=== PATIENT | female | born 1935 | race Two or more races ===

== ENCOUNTER 2022-05-22 16:59 | Inpatient (IN) | payer MEDICARE, OTHER ==
[~2022-05-22] VITALS: Ht 165.1 cm; Wt 68.5 kg
--- NOTE | 2022-05-22 17:25 | NUR ---
PAULINE FROM [facility] FOR AGITATION AND AGGRESSIVE BEHAVIOR. TO ER BED 11.
[2022-05-22] MEDS ORDERED: ACET325T53 PO (17:44)
[2022-05-22] MEDS ORDERED: FURO-145 PO (17:44)
[2022-05-22] MEDS ORDERED: DIVA500T2 PO (17:44)
[2022-05-22] MEDS ORDERED: POTA10CA43 PO (17:44)
[2022-05-22] MEDS ORDERED: BISA10SU11 RC (17:44)
[2022-05-22] MEDS ORDERED: QUET25TA PO (17:44)
[2022-05-22 17:59] LABS: BASOPHILS % (AUTO) 0.4 % (0.0-2.0); EOSINOPHILS % (AUTO) 1.7 % (0.0-6.0); HEMATOCRIT 38 % (33-45); HEMOGLOBIN 12.5 g/dL (11.5-14.8); LYMPHOCYTES # (AUTO) 1.5 K/uL (0.8-4.8); LYMPHOCYTES % (AUTO) 28.2 % (20.0-44.0); MEAN CORPUSCULAR HGB CONC 33 g/dl (31.0-36.0); MEAN CORPUSCULAR VOLUME 86 fL (82-100); MONOCYTES # (AUTO) 0.5 K/uL (0.1-1.30); MONOCYTES % (AUTO) 9.3 % (2.0-12.0); NEUTROPHILS # (AUTO) 3.2 K/uL (1.8-8.9); NEUTROPHILS % (AUTO) 60.4 % (43.0-81.0); PLATELET COUNT (AUTO) 309 K/uL (150-450); RED BLOOD CELL COUNT(AUTO) 4.44 MIL/uL (4.0-5.2); WHITE BLOOD COUNT (AUTO) 5.2 K/uL (4.3-11.0)
--- NOTE | 2022-05-22 18:00 | NUR ---
PHLEB ABLE TO DRAW BLOOD
--- NOTE | 2022-05-22 18:10 | NUR ---
PT UNABLE TO PROVIDE URINE AT THIS TIME; GESTURING "NO" WHEN INSTRUCTED TO GIVE URINE.
[2022-05-22 18:11] LABS: CALCIUM, SERUM 8.7 mg/dL (8.5-10.1); CARBON DIOXIDE 31 mmol/L (21-32); CHLORIDE 100 mmol/L (98-107); CREATININE 1.2 mg/dL (0.6-1.3); GLUCOSE 206 mg/dL (74-106); POTASSIUM 4.1 mmol/L (3.5-5.1); SODIUM SERUM 136 mmol/L (136-145); UREA NITROGEN, BLOOD 31 mg/dL (7-18)
[2022-05-22 18:17] LABS: ALANINE AMINOTRANSFERASE 11 U/L (12-78); ALBUMIN 3.1 g/dL (3.4-5.0); ALCOHOL, BLOOD < 3 mg/dL (0-0); ALKALINE PHOSPHATASE 65 U/L (46-116); ASPARTATE AMINOTRANSFERASE 14 U/L (15-37); BILIRUBIN,DIRECT 0.1 mg/dL (0.0-0.2); BILIRUBIN,TOTAL 0.2 mg/dL (0.2-1.0); TOTAL PROTEIN, SERUM 7.6 g/dL (6.4-8.2)
--- NOTE | 2022-05-22 18:36 | NUR ---
COVID SWAB COLLECTED AND SENT TO LAB
--- NOTE | 2022-05-22 19:37 | NUR ---
URINE COLLECTED AND SENT TO LAB
[2022-05-22 20:28] LABS: BILIRUBIN,URINE NEGATIVE (NEGATIVE); COLOR,URINE YELLOW (YELLOW); LEUKOCYTE ESTERASE ,URINE 1+ (NEGATIVE); NITRITE, URINE NEGATIVE (NEGATIVE); PROTEIN,URINE TRACE mg/dl (NEGATIVE); UGLUCOSE NEGATIVE (NEGATIVE); UROBILINOGEN,URINE 0.2 EU/dL (0.2)
--- NOTE | 2022-05-22 20:43 | NUR ---
CALLED [facility] CRISIS TEAM FOR EVAL
[2022-05-22 20:59] LABS: BACTERIA,URINE 1+ /HPF (None Seen); RBC,URINE 0-2 /HPF (0-2)
--- NOTE | 2022-05-22 21:03 | NUR ---
[facility] PAGED
--- NOTE | 2022-05-22 23:02 | NUR ---
ALISON MICHAEL[facility] CRISIS TEAM AT PT'S BEDSIDE FOR EVAL
--- NOTE | 2022-05-23 00:14 | NUR ---
REPORT GIVEN TO HOLLAND FERNANDEZNANDO
--- NOTE | 2022-05-23 00:39 | NUR ---
PATIENT TRANSFERRED VSS
[2022-05-23 00:45] VITALS: BP 131/68
--- NOTE | 2022-05-23 00:45 | NUR ---
GPS SOFT BOARDER NOTES RECEIVED FROM ER VIA ELISA THIS 86 YO FEMALE,A RESIDENT OF [facility], WAS SENT TO [place] FOR EVALUATION OF BEHAVIOR,AGITATION AND AGGRESSIVE BEHAVIOR,WAS PUT ON 5150 HOLD FOR PSYCHOSIS NOS.ALERT,ORIENTED X2-3,KYRGYZ SPEAKING,UNDERSTAND LITTLE CROATIAN.ABLE TO AMBULATE WITH STEADY GAIT.NO SKIN ISSUES.WILL CONTINUE TO MONITOR BEHAVIOR AND MANAGE ACCORDINGLY.
[2022-05-23] MEDS ORDERED: BISACODYL SUPP (10 MG) 10 MG/SUPP.RECT SUPP.RECT RC PRN (01:00)
[2022-05-23] MEDS ORDERED: MAG HYDROX/AL HYDROX/SIMETH 30 ML UDC PO PRN (01:00)
[2022-05-23] MEDS ORDERED: ACETAMINOPHEN 325 MG TABLET PO PRN (01:00)
[2022-05-23] MEDS ORDERED: BLOOD SUGAR DIAGNOSTIC 1 EACH STRIP IN ONE (01:00)
[2022-05-23] MEDS ORDERED: MAGNESIUM HYDROXIDE 30 ML UDC PO PRN (01:00)
[2022-05-23] MEDS ORDERED: TEMAZEPAM 7.5 MG CAPSULE PO PRN (01:00)
--- NOTE | 2022-05-23 01:30 | NUR ---
GPS RN NOTES VERBALIZING SHE'S HUNGRY,GIVEN JUICE AND SANDWICH,AND JELLO.WITH EPISODE AGGRESSIVE BEHAVIOR.
--- NOTE | 2022-05-23 03:00 | NUR ---
GPS RN NOTES AWAKE,SITTING ON CHAIR IN FRONT OF HER ROOM,TALKING LOUD IN SPANISH,CHARGE NURSE OFFERED ATIVAN TO CALM HER DOWN BUT REFUSED.
[2022-05-23] MEDS: CEPHALEXIN MONOHYDRATE 500 MG CAPSULE PO SCH ×3 (05:50→21:18)
[2022-05-23 07:15] LABS: CHOLESTEROL 209 mg/dL (<200); HDL CHOLESTEROL 69 mg/dL (40-60); LDL 128 mg/dL (0-99); TRIGLYCERIDES 135 mg/dL (30-150)
[2022-05-23 08:00] VITALS: BP 127/78
[2022-05-23] MEDS: FUROSEMIDE 20 MG TABLET PO SCH (08:26)
[2022-05-23] MEDS: POTASSIUM CHLORIDE 20 MEQ POWDER PACKET PO SCH (08:30)
--- NOTE | 2022-05-23 09:10 | NUR ---
LIZETH Initial Discharge Plan: Patient currently resides at [address] [address]; ). LIZETH spoke with Orquidea gómez ([phone]) who stated that pt is welcomed back. LIZETH will contact pt's daughter No ([phone]) to discuss treatment/discharge plan.
--- NOTE | 2022-05-23 09:12 | NUR ---
LIZETH Clinical Note: Pt placed on a 5150 hold for danger to others and GD. Per hold, pt was brought to the hospital due to pt being aggressive at her facility. Patient currently resides at [address] [address]; ). LIZETH spoke with Orquidea gómez ([phone]) who stated that pt is welcomed back. LIZETH will contact pt's daughter No ([phone]) to discuss treatment/discharge plan.
--- NOTE | 2022-05-23 09:12 | NUR ---
Treatment Plan: Pt refused to sign treatment plan. Pt was yelling and screaming.
--- NOTE | 2022-05-23 11:10 | NUR ---
LIZETH Family Contact: SW contacted pt's daughter No Domínguez ([phone]) and notified of pt's admission and discussed treatment/discharge plan. She stated when pt is stable for pt to return back to [facility].
[2022-05-23] MEDS: QUETIAPINE FUMARATE 25 MG TABLET PO SCH ×3 (14:50→21:18)
[2022-05-23] MEDS: DIVALPROEX SODIUM 125 MG CAP.SPRINK PO SCH ×2 (14:50→17:29)
[2022-05-23 16:00] VITALS: BP 136/99
[2022-05-23] MEDS: LORAZEPAM 0.5 MG TABLET PO PRN (16:01)
--- NOTE | 2022-05-23 16:05 | NUR ---
RN-NOTES NOTED PATIENT YELLING AND SCREAMING FOR NO REASON,TALKING TO HER LANGUAGE, REDIRECTED AND ATIVAN 0.5MG P.O GIVEN PRN ORDER. WILL CONT. MONITORING FOR SAFETY AND BEHAVIOR.
--- NOTE | 2022-05-23 17:05 | NUR ---
RN-NOTES PATIENT IN THE ROOM UP IN THE KAYKAY CHAIR AWAKE.A/O X1 ,CALM,NO ACUTE DISTRESS NOTED.
--- NOTE | 2022-05-23 18:16 | NUR ---
RN-NOTES PATIENT VISIBLE IN THE UNIT,A/OX2,GUARDED,NO ACUTE DISTRESS NOTED.SELECTIVE WITH MEDICATIONS.REFUSED POTASSIUM P.O IN AM, AMBULATORY STEADY GAIT. NOTED WITH EASILY ANGRY AND ARGUMENTATIVE BEHAVIOR.NEEDS INSTRUCTIONS AND DIRECTIONS.ALL NEEDS ATTENDED AND ANTICIPATED. WILL CONT. MONITORING FOR SAFETY AND BEHAVIOR.WILL ENDORSE TO INCOMING NURSE FOR THE CONTINUITY OF CARE.
--- NOTE | 2022-05-23 20:00 | NUR ---
RN NOTES: RECEVIED PATIENT SITTING UP IN KAYKAY CHAIR, NO S/SX OF ACUTE DISTRESS NOTED,ANXIOUS , EASILY AGITATED,PARANOID,GUARDED, UNCOOPERATIVE, HYPERVERBAL DISORGNIZED AGITATED, EPISODES OF YELLING SCREAMING NOTED MED COMPLIANT SAFETY PRECAUTIONS MAINTAINED.ENCOURAGED TO VERBALIZED ANY FEELING OR CONCERN, WILL CONTINUE TO MONITOR Q15MIN ROUNDS FOR SAFETY AND BEHAVIOR.
[2022-05-23 20:50] VITALS: BP 141/80
[2022-05-24] MEDS: CEPHALEXIN MONOHYDRATE 500 MG CAPSULE PO SCH ×3 (05:03→21:10)
[2022-05-24 08:00] VITALS: BP 110/64
[2022-05-24] MEDS: POTASSIUM CHLORIDE 20 MEQ POWDER PACKET PO SCH (09:08)
[2022-05-24] MEDS: QUETIAPINE FUMARATE 25 MG TABLET PO SCH ×3 (09:08→21:11)
[2022-05-24] MEDS: FUROSEMIDE 20 MG TABLET PO SCH (09:08)
[2022-05-24] MEDS: DIVALPROEX SODIUM 125 MG CAP.SPRINK PO SCH ×3 (09:08→17:09)
--- NOTE | 2022-05-24 09:48 | NUR ---
RN-NOTES ERINN CARR MADE AWARE OF PATIENT ABDOMINAL PAIN WITH T.O ORDER OF CT SCAN OF THE ABDOMEN AND PELVIS WITHOUT CONTRAST. NOTED AND CARRIED OUT.
[2022-05-24 16:00] VITALS: BP 131/67
--- NOTE | 2022-05-24 19:04 | NUR ---
RN-NOTES PATIENT VISIBLE IN THE UNIT,A/OX2,GUARDED,NO ACUTE DISTRESS NOTED.COMPLIANT WITH MEDICATIONS. AMBULATORY WITH WALKER . NOTED WITH EASILY ANGRY AND ARGUMENTATIVE BEHAVIOR.NEEDS INSTRUCTIONS AND DIRECTIONS.ALL NEEDS ATTENDED AND ANTICIPATED. WILL CONT. MONITORING FOR SAFETY AND BEHAVIOR.WILL ENDORSE TO INCOMING NURSE FOR THE CONTINUITY OF CARE.
[2022-05-24 20:00] VITALS: BP 108/71
[2022-05-25] MEDS: CEPHALEXIN MONOHYDRATE 500 MG CAPSULE PO SCH ×3 (04:39→21:16)
[2022-05-25 08:00] VITALS: BP 107/65
[2022-05-25] MEDS: FUROSEMIDE 20 MG TABLET PO SCH (08:22)
[2022-05-25] MEDS: DIVALPROEX SODIUM 125 MG CAP.SPRINK PO SCH ×3 (08:22→16:40)
[2022-05-25] MEDS: POTASSIUM CHLORIDE 20 MEQ POWDER PACKET PO SCH (08:22)
[2022-05-25] MEDS: QUETIAPINE FUMARATE 25 MG TABLET PO SCH ×3 (08:22→21:16)
[2022-05-25] MEDS: LORAZEPAM 0.5 MG TABLET PO PRN (08:45)
--- NOTE | 2022-05-25 08:45 | NUR ---
RN-NOTES NOTED PATIENT YELLING AND SCREAMING FOR NO REASON. REDIRECTED AND ATIVAN 0.5MG P.O GIVEN PRN ORDER. WILL CONT. MONITORING FOR SAFETY AND BEHAVIOR.
--- NOTE | 2022-05-25 09:45 | NUR ---
RN-NOTES PATIENT LYING IN BED AWAKE,A/OX1 ,QUIET,CALM NO ACUTE DISTRESS NOTED.
[2022-05-25] MEDS ORDERED: DEXTROSE 50%-WATER 50 ML DISP.SYRIN IV PRN (13:00)
[2022-05-25 16:12] VITALS: BP_SYST 120; BP_DIAS 59; BP_DIAS 69
[2022-05-25] MEDS: BLOOD SUGAR DIAGNOSTIC 1 EACH STRIP IN SCH ×2 (17:30→21:59)
--- NOTE | 2022-05-25 18:46 | NUR ---
RN-NOTES PATIENT VISIBLE IN THE UNIT,A/OX2,GUARDED,NO ACUTE DISTRESS NOTED.COMPLIANT WITH MEDICATIONS BUT REFUSED ACCU CHECK THIS EVENING DESPITE ENCOURAGEMENT. AMBULATORY WITH WALKER . NOTED WITH EASILY ANGRY AND ARGUMENTATIVE BEHAVIOR.NEEDS INSTRUCTIONS AND DIRECTIONS.ALL NEEDS ATTENDED AND ANTICIPATED. WILL CONT. MONITORING FOR SAFETY AND BEHAVIOR.WILL ENDORSE TO INCOMING NURSE FOR THE CONTINUITY OF CARE.
[2022-05-25 20:49] VITALS: BP 111/73
--- NOTE | 2022-05-25 22:00 | NUR ---
RN NOTE; PT REFUSED ACCU CHECK,SAID NO X3.
[2022-05-26] MEDS: CEPHALEXIN MONOHYDRATE 500 MG CAPSULE PO SCH ×3 (05:22→23:02)
[2022-05-26] MEDS: BLOOD SUGAR DIAGNOSTIC 1 EACH STRIP IN SCH ×4 (07:38→22:00)
[2022-05-26 08:00] VITALS: BP 121/61
[2022-05-26] MEDS: QUETIAPINE FUMARATE 25 MG TABLET PO SCH ×3 (08:43→23:02)
[2022-05-26] MEDS: FUROSEMIDE 20 MG TABLET PO SCH (08:43)
[2022-05-26] MEDS: POTASSIUM CHLORIDE 20 MEQ POWDER PACKET PO SCH (08:43)
[2022-05-26] MEDS: DIVALPROEX SODIUM 125 MG CAP.SPRINK PO SCH ×3 (08:44→16:26)
--- NOTE | 2022-05-26 09:00 | NUR ---
NURSE NOTE: PT REFUSED INSULIN AT THIS TIME, TOOK POTASSIUM, BUT DROPPED OTHER MEDS. TOOK OUT NEW MEDS AND PT TOOK THOSE. WILL CONT TO MONITOR.
[2022-05-26] MEDS: INSULIN REGULAR, HUMAN 100 UNIT/ML 3 ML VIAL SQ PRN (09:19)
[2022-05-26] MEDS: LORAZEPAM 0.5 MG TABLET PO PRN (09:19)
--- NOTE | 2022-05-26 09:20 | NUR ---
NURSE NOTE: PT HAVING EPISODE OF YELLING AND SCREAMING, THREW WATER ON OTHER PT. ATIVAN PO ADMINISTERED ORDERED FOR AGITATION. PT BAYLEE WELL. WILL CONT TO MONITOR.
--- NOTE | 2022-05-26 10:20 | NUR ---
NURSE NOTE: PT CONT AGITATED, YELLING AND SCREAMING. DR CEDILLO ON THE FLOOR AND NOTED BEHAVIOR. ORDERED LORAZEPAM 1 MG AND OLANZAPINE 5 MG IM. WILL CONT TO MONITOR.
[2022-05-26] MEDS ORDERED: OLANZAPINE 10 MG VIAL IM ONE (10:30)
[2022-05-26] MEDS ORDERED: LORAZEPAM INJ 2 MG/ML VIAL IM ONE (10:30)
--- NOTE | 2022-05-26 10:50 | NUR ---
NURSE NOTE: PT CONT HAVING YELLING AND SCREAMING OUTBURSTS. LORAZEPAM 1 MG IM AND OLANZAPINE 5 MG IM ADMINISTERED ORDERED. ADMINISTERED TO L ARM. PT BAYLEE WELL. RR AT 20 AT THIS TIME, REFUSES VITALS. IN STABLE COND, WILL CONT TO MONITOR.
--- NOTE | 2022-05-26 11:50 | NUR ---
NURSE NOTE: PT IN ROOM IN [facility]. CALMER AT THIS TIME, BUT CONT HAVING OCC YELLING OUTBURSTS. WILL CONT TO MONITOR.
[2022-05-26 16:00] VITALS: BP 128/73
[2022-05-26 20:26] VITALS: BP 139/64
[2022-05-27] MEDS: CEPHALEXIN MONOHYDRATE 500 MG CAPSULE PO SCH ×3 (05:49→22:10)
--- NOTE | 2022-05-27 07:25 | NUR ---
GPS RN NOTES RECEIVED PATIENT LYING IN BED, SLEEPING BUT EASILY AWAKEN, A/O X1, CALM, WITHDRAWN, COOPERATIVE, NO ACUTE DISTRESS NOTED. NO SOB NOTED, BREATHING EVEN AND UNLABORED, SAFETY MEASURES IN PLACE: BED AT LOWEST AND LOCKED POSITION, BED ALARM ON, FREQUENT VISUAL CHECK FOR SAFETY AND MONITORING BEHAVIOR. WILL CONTINUE PLAN OF CARE.
[2022-05-27 08:00] VITALS: BP 116/51
[2022-05-27] MEDS: BLOOD SUGAR DIAGNOSTIC 1 EACH STRIP IN SCH ×4 (08:02→22:10)
[2022-05-27] MEDS: POTASSIUM CHLORIDE 20 MEQ POWDER PACKET PO SCH (09:25)
[2022-05-27] MEDS: FUROSEMIDE 20 MG TABLET PO SCH (09:25)
[2022-05-27] MEDS: DIVALPROEX SODIUM 125 MG CAP.SPRINK PO SCH ×3 (09:25→16:55)
[2022-05-27] MEDS: QUETIAPINE FUMARATE 25 MG TABLET PO SCH ×3 (09:25→22:10)
[2022-05-27] MEDS: INSULIN REGULAR, HUMAN 100 UNIT/ML 3 ML VIAL SQ PRN ×3 (11:48→22:11)
--- NOTE | 2022-05-27 12:05 | NUR ---
GPS RN NOTES - ABLE TO GATHER URINE SAMPLE FOR PATIENT. CALLED LAB TO INDUSTRIAL TWISTING MACHINE OPERATOR.
--- NOTE | 2022-05-27 14:05 | NUR ---
GPS RN NOTES - CALLED LAB TO FOLLOW UP ON THE PICK-UP OF THE URINE SAMPLE.
--- NOTE | 2022-05-27 15:05 | NUR ---
GPS RN NOTES - PATIENT REFUSED TO PARTICIPATE WITH PT.
--- NOTE | 2022-05-27 15:31 | NUR ---
GPS RN NOTES - PATIENT IS WALKING AROUND WITH FWW.
[2022-05-27 16:00] VITALS: BP 156/81
[2022-05-27 16:37] LABS: BILIRUBIN,URINE NEGATIVE (NEGATIVE); COLOR,URINE YELLOW (YELLOW); LEUKOCYTE ESTERASE ,URINE NEGATIVE (NEGATIVE); NITRITE, URINE NEGATIVE (NEGATIVE); PROTEIN,URINE TRACE mg/dl (NEGATIVE); UGLUCOSE NEGATIVE (NEGATIVE); UROBILINOGEN,URINE 0.2 EU/dL (0.2)
[2022-05-27 17:21] LABS: BACTERIA,URINE None seen /HPF (None Seen); RBC,URINE 0-2 /HPF (0-2); WBC,URINE 0-2 /HPF (0-3)
--- NOTE | 2022-05-27 18:49 | NUR ---
GPS RN CLOSING NOTES PATIENT LYING IN BED, AWAKE, STARING AT THE CEILING QUIETLY, A/O X1, CALM, WITHDRAWN, COOPERATIVE, NO ACUTE DISTRESS NOTED. NO SOB NOTED, BREATHING EVEN AND UNLABORED. ALL DUE MEDS GIVEN, ALL NEEDS MET. MED COMPLIANT. SAFETY MEASURES MAINTAINED, KEPT PATIENT SAFE. WILL ENDORSE TO CURED MEATS SUPERVISOR NURSE.
[2022-05-27 20:00] VITALS: BP 140/61
[2022-05-28] MEDS: CEPHALEXIN MONOHYDRATE 500 MG CAPSULE PO SCH ×3 (05:10→21:36)
[2022-05-28 07:05] LABS: BASOPHILS % (AUTO) 0.3 % (0.0-2.0); EOSINOPHILS % (AUTO) 1.4 % (0.0-6.0); HEMATOCRIT 36 % (33-45); HEMOGLOBIN 11.8 g/dL (11.5-14.8); LYMPHOCYTES # (AUTO) 1.7 K/uL (0.8-4.8); LYMPHOCYTES % (AUTO) 28.5 % (20.0-44.0); MEAN CORPUSCULAR HGB CONC 33 g/dl (31.0-36.0); MEAN CORPUSCULAR VOLUME 87 fL (82-100); MONOCYTES # (AUTO) 0.8 K/uL (0.1-1.30); MONOCYTES % (AUTO) 13.8 % (2.0-12.0); NEUTROPHILS # (AUTO) 3.3 K/uL (1.8-8.9); PLATELET COUNT (AUTO) 274 K/uL (150-450); RED BLOOD CELL COUNT(AUTO) 4.15 MIL/uL (4.0-5.2)
[2022-05-28 07:16] LABS: ALBUMIN 2.6 g/dL (3.4-5.0); BILIRUBIN,TOTAL 0.4 mg/dL (0.2-1.0); CALCIUM, SERUM 8.6 mg/dL (8.5-10.1); CREATININE 1.1 mg/dL (0.6-1.3); POTASSIUM 4.2 mmol/L (3.5-5.1); TOTAL PROTEIN, SERUM 6.8 g/dL (6.4-8.2)
--- NOTE | 2022-05-28 07:29 | NUR ---
GPS RN NOTE RECEIVED PT ASLEEP IN BED, EASILY AROUSED. PT IS A/OX1, REORIENTED PT NEEDED. ON ROOM AIR, TOLERATING WELL. NO SOB NOTED. NOT IN ANY SIGN OF RESPIRATORY DISTRESS. SAFETY MEASURES IN PLACE: BED IN LOWEST AND LOCKED POSITION, SIDE RAILS UPX2, BED ALARM ON, AND CALL LIGHT WITHIN REACH. WILL CONTINUE TO MONITOR PT.
--- NOTE | 2022-05-28 07:30 | NUR ---
RN NOTE- LAB REPORTED PT POSITIVE FOR COVID. PT HAS DRY COUGH. NOTIFIED HOUSE SUP AND JAVA LEAD DEVELOPER SHIRLEY. MOVED PT TO ISOLATION ROOM AND ADVISED STAFF. BROUGHT STAFF N95 MASKS. JAVA LEAD DEVELOPER SHIRLEY TO ORDER CXR
[2022-05-28 08:00] VITALS: BP 145/73
[2022-05-28] MEDS: INSULIN REGULAR, HUMAN 100 UNIT/ML 3 ML VIAL SQ PRN ×2 (08:14→11:27)
[2022-05-28] MEDS: BLOOD SUGAR DIAGNOSTIC 1 EACH STRIP IN SCH ×4 (08:14→21:37)
[2022-05-28] MEDS: POTASSIUM CHLORIDE 20 MEQ POWDER PACKET PO SCH (08:23)
[2022-05-28] MEDS: DIVALPROEX SODIUM 125 MG CAP.SPRINK PO SCH ×3 (08:24→16:54)
[2022-05-28] MEDS: FUROSEMIDE 20 MG TABLET PO SCH (08:24)
[2022-05-28] MEDS: QUETIAPINE FUMARATE 25 MG TABLET PO SCH ×3 (08:25→21:37)
--- NOTE | 2022-05-28 11:15 | NUR ---
RN NOTE- CXR COMPLETED/ PT AFEBRILE. NOT COUGHING AT PRESENT
--- NOTE | 2022-05-28 12:30 | NUR ---
RN NOTE- CXR RESULTS PHONED TO EDILBERTO WATSON. NO NEW ORDERS
[2022-05-28 16:00] VITALS: BP 138/57
--- NOTE | 2022-05-28 16:55 | NUR ---
RN NOTE PT REFUSED ACCUCHECK SCHEDULED AT 7590. EXPLAINED RISK AND BENEFITS, PT STILL REFUSED.
[2022-05-28 20:08] VITALS: BP 127/67
--- NOTE | 2022-05-28 21:44 | NUR ---
RN NOTE: PATIENT BLOOD SUGAR WAS 138MG/DL. REFUSED REGULAR INSULIN COVERAGE OF 2UNITS. EXPLAINED RISKS/BENEFITS. PATIENT BECAME AGITATED. CHARGE NURSE AWARE.
[2022-05-29] MEDS: LORAZEPAM 0.5 MG TABLET PO PRN ×2 (03:07→13:49)
[2022-05-29] MEDS: CEPHALEXIN MONOHYDRATE 500 MG CAPSULE PO SCH ×3 (05:42→21:00)
[2022-05-29 08:00] VITALS: BP 150/76
[2022-05-29] MEDS: POTASSIUM CHLORIDE 20 MEQ POWDER PACKET PO SCH (09:08)
[2022-05-29] MEDS: QUETIAPINE FUMARATE 25 MG TABLET PO SCH ×3 (09:08→22:15)
[2022-05-29] MEDS: DIVALPROEX SODIUM 125 MG CAP.SPRINK PO SCH ×3 (09:08→16:51)
[2022-05-29] MEDS: FUROSEMIDE 20 MG TABLET PO SCH (09:08)
[2022-05-29] MEDS: BLOOD SUGAR DIAGNOSTIC 1 EACH STRIP IN SCH ×5 (09:26→22:34)
[2022-05-29] MEDS: INSULIN REGULAR, HUMAN 100 UNIT/ML 3 ML VIAL SQ PRN ×4 (09:28→22:29)
--- NOTE | 2022-05-29 12:51 | NUR ---
Court Notification: SW attempted to contact pt's daughter No Domínguez ([phone]) and left a voicemail of pt's 4101 hearing.
--- NOTE | 2022-05-29 13:49 | NUR ---
RN NOTE PATIENT NOTED GETTING OUT OF ROOM WITHOUT MASK, PATIENT ON ISOLATION R/T COVID-19. UNABLE TO REDIRECT PATIENT, SCREAMING/YELLING. ATIVAN 1 MG GIVEN FOR AGITATION. WILL CONTINUE TO MONITOR PATIENT.
--- NOTE | 2022-05-29 13:50 | NUR ---
RN-CO: Patient is non redirectable, keeps on pacing in the hallway without mask and refused to wear it. Patient is COVID +.
--- NOTE | 2022-05-29 13:55 | NUR ---
RN-CO: DR SHER ORDERED 1:1 SITTER TO KEEP PATIENT INSIDE HER ROOM (COVID + ) . NON REDIRECTABLE AND REFUSED TO WEAR MASK.
--- NOTE | 2022-05-29 14:13 | NUR ---
Court Hearing: Patient's court hearing for 2040 was today and it was upheld for GD.
[2022-05-29 16:00] VITALS: BP 151/85
[2022-05-30] MEDS: CEPHALEXIN MONOHYDRATE 500 MG CAPSULE PO SCH ×2 (05:38→12:38)
[2022-05-30] MEDS: BLOOD SUGAR DIAGNOSTIC 1 EACH STRIP IN SCH ×2 (07:30→12:51)
[2022-05-30 08:00] VITALS: BP 128/76
[2022-05-30] MEDS: POTASSIUM CHLORIDE 20 MEQ POWDER PACKET PO SCH (10:05)
[2022-05-30] MEDS: DIVALPROEX SODIUM 125 MG CAP.SPRINK PO SCH ×2 (10:05→12:38)
[2022-05-30] MEDS: QUETIAPINE FUMARATE 25 MG TABLET PO SCH (10:06)
[2022-05-30] MEDS: FUROSEMIDE 20 MG TABLET PO SCH (10:06)
--- NOTE | 2022-05-30 10:31 | NUR ---
LIZETH Family Contact: LIZETH contacted pts daughter No ([phone]) and notified that pt will be discharged today to [facility] and once she is negative for covid she will return back to [facility]. She was agreeable of this.
--- NOTE | 2022-05-30 10:48 | NUR ---
LIZETH Discharge Note: Patient will be discharged to [facility] facility [facility] located at [address] [place] [address]; ([phone]). Please arrange transportation at 2PM. Customer Experience Associate spoke with Orquidea gómez ([phone]), who stated patient will be accepted today. SW contacted pts daughter No ([phone]) and she was agreeable of this. Patient is alert and oriented x1 and is unable to plan for self-care. Patient denies any suicidal or homicidal ideations. Patient is aware and agreeable with discharge plans. Patient will continue to follow-up with (psychiatrist) Dr. Anita Kruger located at [address], [place] [address]; ([phone]) and (pot annealer) Dr. Scott Rodriguez located at [address] [place] [address]; ([phone]). Patient presents with euthymic and congruent mood.
--- NOTE | 2022-05-30 11:36 | NUR ---
Dr. oYusif gave an order to D/C hold and D/C to [facility], to continue same meds including prn and to follow up with psych and medical doctors.
[2022-05-30] MEDS: INSULIN REGULAR, HUMAN 100 UNIT/ML 3 ML VIAL SQ PRN (12:58)
--- NOTE | 2022-05-30 13:30 | NUR ---
ms rn patient ready to go to snf, denies pain,no hallucinations, no plans of comitiing suicide,all needs attended.
--- NOTE | 2022-05-30 13:38 | NUR ---
Abhay Cruz THERMOMETER MAKER made aware of the discharge and said pt. is cleared for discharge and to continue same meds including prn.
== END 2022-05-30 15:00 | DRG 885 ==
LOC: ER 17:08 → GPS 05-23 00:25
PROVIDERS: ADMIT Psychiatry & Neurology Psychosomatic Medicine; ATTEND Nurse Practitioner Acute Care
DX: F31.9 Bipolar disorder, unspecified (principal); U07.1 COVID-19; E11.65 Type 2 diabetes mellitus with hyperglycemia; F03.94 Unspecified dementia, unspecified severity, with anxiety; F03.93 Unspecified dementia, unspecified severity, with mood disturbance; F03.92 Unspecified dementia, unspecified severity, with psychotic disturbance; N39.0 Urinary tract infection, site not specified; F29 Unspecified psychosis not due to a substance or known physiological condition; F41.9 Anxiety disorder, unspecified; Z79.899 Other long term (current) drug therapy; Z73.6 Limitation of activities due to disability; R79.89 Other specified abnormal findings of blood chemistry; B96.89 Other specified bacterial agents as the cause of diseases classified elsewhere; K57.90 Diverticulosis of intestine, part unspecified, without perforation or abscess without bleeding; I10 Essential (primary) hypertension
CPT/HCPCS: 36415; 71045-TC; 80048-TC; 80053-TC; 80061-TC; 80076-TC; 80164-TC; 81001; 82565-TC; 82962-TC; 85025-TC; 87081-TC; 87086-TC; 97112-TC; 97116-TC; 97530-TC; C9803; G0480; J1815; J2060; J3490

== ENCOUNTER 2022-09-04 16:48 | Inpatient (IN) | payer MEDICARE, OTHER ==
[~2022-09-04] VITALS: Ht 160 cm; Wt 68.0 kg
[~2022-09-04 16:48] MED LIST: ACET325T53 PO; BISA10SU11 RC; DIVA500T2 PO; FURO-145 PO; POTA10CA43 PO; QUET25TA PO
[2022-09-04 17:39] LABS: BASOPHILS % (AUTO) 0.6 % (0.0-2.0); EOSINOPHILS % (AUTO) 1.3 % (0.0-6.0); HEMATOCRIT 34 % (33-45); HEMOGLOBIN 11.3 g/dL (11.5-14.8); LYMPHOCYTES # (AUTO) 1.1 K/uL (0.8-4.8); LYMPHOCYTES % (AUTO) 20.4 % (20.0-44.0); MEAN CORPUSCULAR HGB CONC 34 g/dl (31.0-36.0); MEAN CORPUSCULAR VOLUME 87 fL (82-100); MONOCYTES # (AUTO) 0.4 K/uL (0.1-1.30); MONOCYTES % (AUTO) 7.7 % (2.0-12.0); NEUTROPHILS # (AUTO) 3.6 K/uL (1.8-8.9); PLATELET COUNT (AUTO) 272 K/uL (150-450); RED BLOOD CELL COUNT(AUTO) 3.84 MIL/uL (4.0-5.2); WHITE BLOOD COUNT (AUTO) 5.2 K/uL (4.3-11.0)
[2022-09-04 17:50] LABS: CALCIUM, SERUM 8.6 mg/dL (8.5-10.1); CARBON DIOXIDE 27 mmol/L (21-32); CHLORIDE 104 mmol/L (98-107); CREATININE 1.2 mg/dL (0.6-1.3); GLUCOSE 224 mg/dL (74-106); POTASSIUM 4.1 mmol/L (3.5-5.1); SODIUM SERUM 138 mmol/L (136-145); UREA NITROGEN, BLOOD 31 mg/dL (7-18)
[2022-09-04 17:52] LABS: BILIRUBIN,URINE NEGATIVE (NEGATIVE); COLOR,URINE YELLOW (YELLOW); LEUKOCYTE ESTERASE ,URINE 1+ (NEGATIVE); NITRITE, URINE NEGATIVE (NEGATIVE); PH,URINE 6.5 (5.0-8.0); PROTEIN,URINE 1+ mg/dl (NEGATIVE); UGLUCOSE NEGATIVE (NEGATIVE); UROBILINOGEN,URINE 0.2 EU/dL (0.2)
[2022-09-04 17:58] LABS: ALANINE AMINOTRANSFERASE 17 U/L (12-78); ALCOHOL, BLOOD < 3 mg/dL (0-0); ALKALINE PHOSPHATASE 70 U/L (46-116); ASPARTATE AMINOTRANSFERASE 14 U/L (15-37); BILIRUBIN,DIRECT 0.1 mg/dL (0.0-0.2); BILIRUBIN,TOTAL 0.2 mg/dL (0.2-1.0); TOTAL PROTEIN, SERUM 6.8 g/dL (6.4-8.2)
[2022-09-04 18:06] LABS: BACTERIA,URINE 1+ /HPF (None Seen); RBC,URINE 0-2 /HPF (0-2); SQUAMOUS EPITHELIAL CELL,UR Few /HPF (None Seen); WBC,URINE 21-50 /HPF (0-3)
[2022-09-04] MEDS ORDERED: CEFTRIAXONE 1 G VIAL IM ONE (19:00)
[2022-09-04] MEDS ORDERED: BISACODYL SUPP (10 MG) 10 MG/SUPP.RECT SUPP.RECT RC PRN (19:30)
[2022-09-04] MEDS ORDERED: ACETAMINOPHEN 325 MG TABLET PO PRN ×2 (19:30→23:00)
[2022-09-04] MEDS ORDERED: LIDOCAINE /MPF 1% VIAL 5 ML VIAL ONE (19:55)
[2022-09-04] MEDS ORDERED: CEFTRIAXONE 1 G VIAL ONE (19:56)
[2022-09-04 22:42] VITALS: BP 137/71
[2022-09-04] MEDS ORDERED: BLOOD SUGAR DIAGNOSTIC 1 EACH STRIP IN ONE (23:00)
[2022-09-04] MEDS ORDERED: MAGNESIUM HYDROXIDE 30 ML UDC PO PRN (23:00)
[2022-09-04] MEDS ORDERED: TEMAZEPAM 7.5 MG CAPSULE PO PRN (23:00)
[2022-09-04] MEDS ORDERED: LORAZEPAM 0.5 MG TABLET PO PRN (23:00)
[2022-09-04] MEDS ORDERED: MAG HYDROX/AL HYDROX/SIMETH 30 ML UDC PO PRN (23:00)
[2022-09-05] MEDS: CEPHALEXIN MONOHYDRATE 500 MG CAPSULE PO SCH ×4 (06:01→17:29)
[2022-09-05 08:00] VITALS: BP 161/73
[2022-09-05] MEDS: POTASSIUM CHLORIDE 10 MEQ TABLET.SA PO SCH (09:02)
[2022-09-05] MEDS: FUROSEMIDE 20 MG TABLET PO SCH (09:02)
[2022-09-05] MEDS ORDERED: MAG30ORA PO (10:27)
[2022-09-05] MEDS ORDERED: INSU100V3 SQ (10:27)
[2022-09-05] MEDS ORDERED: MAGN400O6 PO (10:27)
[2022-09-05] MEDS ORDERED: MELA3TAB41 PO (10:27)
[2022-09-05] MEDS ORDERED: POTA10TA10 PO (10:27)
[2022-09-05] MEDS: QUETIAPINE FUMARATE 25 MG TABLET PO SCH ×2 (12:20→17:29)
[2022-09-05 16:00] VITALS: BP 107/67
[2022-09-05] MEDS ORDERED: DEXTROSE 50%-WATER 50 ML DISP.SYRIN IV PRN (18:30)
[2022-09-05 20:00] VITALS: BP 102/58
[2022-09-05] MEDS: BLOOD SUGAR DIAGNOSTIC 1 EACH STRIP IN SCH (22:15)
[2022-09-05] MEDS: QUETIAPINE FUMARATE 100 MG TABLET PO SCH (22:15)
[2022-09-05] MEDS: INSULIN REGULAR, HUMAN 100 UNIT/ML 3 ML VIAL SQ PRN ×2 (22:26→22:35)
[2022-09-06] MEDS: CEPHALEXIN MONOHYDRATE 500 MG CAPSULE PO SCH ×6 (00:04→23:50)
[2022-09-06 08:00] VITALS: BP 117/73
[2022-09-06] MEDS: BLOOD SUGAR DIAGNOSTIC 1 EACH STRIP IN SCH ×4 (08:00→21:58)
[2022-09-06] MEDS: POTASSIUM CHLORIDE 10 MEQ TABLET.SA PO SCH (08:27)
[2022-09-06] MEDS: FUROSEMIDE 20 MG TABLET PO SCH (08:27)
[2022-09-06] MEDS: QUETIAPINE FUMARATE 25 MG TABLET PO SCH ×3 (08:27→16:41)
[2022-09-06] MEDS: DIVALPROEX SODIUM 125 MG CAP.SPRINK PO SCH ×3 (08:34→16:41)
[2022-09-06] MEDS: INSULIN REGULAR, HUMAN 100 UNIT/ML 3 ML VIAL SQ PRN ×3 (08:35→17:15)
[2022-09-06 16:00] VITALS: BP 133/72
[2022-09-06 20:00] VITALS: BP 110/52
[2022-09-06] MEDS: QUETIAPINE FUMARATE 100 MG TABLET PO SCH (21:22)
[2022-09-07] MEDS: CEPHALEXIN MONOHYDRATE 500 MG CAPSULE PO SCH ×3 (05:18→17:12)
[2022-09-07] MEDS: BLOOD SUGAR DIAGNOSTIC 1 EACH STRIP IN SCH ×4 (07:40→22:00)
[2022-09-07 08:00] VITALS: BP 136/74
[2022-09-07] MEDS: QUETIAPINE FUMARATE 25 MG TABLET PO SCH ×3 (08:13→16:43)
[2022-09-07] MEDS: DIVALPROEX SODIUM 125 MG CAP.SPRINK PO SCH ×3 (08:13→16:43)
[2022-09-07] MEDS: FUROSEMIDE 20 MG TABLET PO SCH (08:13)
[2022-09-07] MEDS: POTASSIUM CHLORIDE 10 MEQ TABLET.SA PO SCH (08:13)
[2022-09-07 16:00] VITALS: BP 121/64
[2022-09-07 20:00] VITALS: BP 121/62
[2022-09-07] MEDS: QUETIAPINE FUMARATE 100 MG TABLET PO SCH (21:31)
[2022-09-08] MEDS: CEPHALEXIN MONOHYDRATE 500 MG CAPSULE PO SCH ×4 (00:07→18:00)
[2022-09-08 08:00] VITALS: BP 136/71
[2022-09-08] MEDS: BLOOD SUGAR DIAGNOSTIC 1 EACH STRIP IN SCH ×4 (08:13→22:08)
[2022-09-08] MEDS: DIVALPROEX SODIUM 125 MG CAP.SPRINK PO SCH ×6 (09:15→18:33)
[2022-09-08] MEDS: POTASSIUM CHLORIDE 10 MEQ TABLET.SA PO SCH (09:15)
[2022-09-08] MEDS: QUETIAPINE FUMARATE 25 MG TABLET PO SCH ×5 (09:15→18:31)
[2022-09-08] MEDS: FUROSEMIDE 20 MG TABLET PO SCH (09:16)
[2022-09-08] MEDS: INSULIN REGULAR, HUMAN 100 UNIT/ML 3 ML VIAL SQ PRN ×2 (12:06→22:18)
[2022-09-08 16:00] VITALS: BP 101/59
[2022-09-08] MEDS: GLUCERNA SHAKE 237 ML CAN PO SCH ×2 (16:00→17:00)
[2022-09-08 20:32] VITALS: BP 146/76
[2022-09-08] MEDS: QUETIAPINE FUMARATE 100 MG TABLET PO SCH (21:26)
[2022-09-09] MEDS: CEPHALEXIN MONOHYDRATE 500 MG CAPSULE PO SCH ×4 (00:31→17:22)
[2022-09-09] MEDS: BLOOD SUGAR DIAGNOSTIC 1 EACH STRIP IN SCH ×4 (07:50→21:12)
[2022-09-09 08:00] VITALS: BP 123/61
[2022-09-09] MEDS: DIVALPROEX SODIUM 125 MG CAP.SPRINK PO SCH ×3 (08:49→17:22)
[2022-09-09] MEDS: QUETIAPINE FUMARATE 25 MG TABLET PO SCH ×3 (08:49→17:22)
[2022-09-09] MEDS: POTASSIUM CHLORIDE 10 MEQ TABLET.SA PO SCH (08:49)
[2022-09-09] MEDS: FUROSEMIDE 20 MG TABLET PO SCH (08:49)
[2022-09-09] MEDS: GLUCERNA SHAKE 237 ML CAN PO SCH ×3 (08:49→17:22)
[2022-09-09] MEDS: INSULIN REGULAR, HUMAN 100 UNIT/ML 3 ML VIAL SQ PRN ×2 (13:18→21:17)
[2022-09-09 16:00] VITALS: BP 110/64
[2022-09-09 20:43] VITALS: BP 105/64
[2022-09-09] MEDS: QUETIAPINE FUMARATE 100 MG TABLET PO SCH (21:13)
[2022-09-10] MEDS: CEPHALEXIN MONOHYDRATE 500 MG CAPSULE PO SCH ×5 (00:26→23:18)
[2022-09-10 08:00] VITALS: BP 148/74
[2022-09-10] MEDS: DIVALPROEX SODIUM 125 MG CAP.SPRINK PO SCH ×6 (09:11→22:16)
[2022-09-10] MEDS: QUETIAPINE FUMARATE 25 MG TABLET PO SCH ×3 (09:11→17:26)
[2022-09-10] MEDS: FUROSEMIDE 20 MG TABLET PO SCH (09:11)
[2022-09-10] MEDS: POTASSIUM CHLORIDE 10 MEQ TABLET.SA PO SCH (09:11)
[2022-09-10] MEDS: GLUCERNA SHAKE 237 ML CAN PO SCH ×3 (11:52→17:25)
[2022-09-10] MEDS: BLOOD SUGAR DIAGNOSTIC 1 EACH STRIP IN SCH ×4 (12:00→21:54)
[2022-09-10 20:00] VITALS: BP 107/58
[2022-09-10 20:10] VITALS: BP 107/58
[2022-09-10] MEDS: QUETIAPINE FUMARATE 100 MG TABLET PO SCH ×3 (21:55→22:16)
[2022-09-11] MEDS: CEPHALEXIN MONOHYDRATE 500 MG CAPSULE PO SCH ×4 (06:17→23:15)
[2022-09-11] MEDS: BLOOD SUGAR DIAGNOSTIC 1 EACH STRIP IN SCH ×4 (07:35→21:47)
[2022-09-11] MEDS: INSULIN REGULAR, HUMAN 100 UNIT/ML 3 ML VIAL SQ PRN ×4 (07:36→22:10)
[2022-09-11] MEDS: GLUCERNA SHAKE 237 ML CAN PO SCH ×3 (07:38→17:39)
[2022-09-11 08:00] VITALS: BP 130/64
[2022-09-11] MEDS: POTASSIUM CHLORIDE 10 MEQ TABLET.SA PO SCH (09:07)
[2022-09-11] MEDS: FUROSEMIDE 20 MG TABLET PO SCH (09:08)
[2022-09-11] MEDS: DIVALPROEX SODIUM 125 MG CAP.SPRINK PO SCH ×4 (09:08→21:47)
[2022-09-11] MEDS: QUETIAPINE FUMARATE 25 MG TABLET PO SCH ×3 (09:08→17:39)
[2022-09-11 16:00] VITALS: BP 101/57
[2022-09-11 20:17] VITALS: BP 156/83
[2022-09-11] MEDS: QUETIAPINE FUMARATE 100 MG TABLET PO SCH (21:47)
[2022-09-12] MEDS: CEPHALEXIN MONOHYDRATE 500 MG CAPSULE PO SCH ×4 (05:43→23:58)
[2022-09-12] MEDS: BLOOD SUGAR DIAGNOSTIC 1 EACH STRIP IN SCH ×4 (07:47→21:21)
[2022-09-12] MEDS: GLUCERNA SHAKE 237 ML CAN PO SCH ×3 (07:47→16:35)
[2022-09-12 08:00] VITALS: BP 113/67
[2022-09-12] MEDS: DIVALPROEX SODIUM 125 MG CAP.SPRINK PO SCH ×4 (08:14→21:13)
[2022-09-12] MEDS: QUETIAPINE FUMARATE 25 MG TABLET PO SCH ×3 (08:14→16:36)
[2022-09-12] MEDS: POTASSIUM CHLORIDE 10 MEQ TABLET.SA PO SCH (08:15)
[2022-09-12] MEDS: FUROSEMIDE 20 MG TABLET PO SCH (08:15)
[2022-09-12 16:00] VITALS: BP 121/65
[2022-09-12 20:17] VITALS: BP 106/67
[2022-09-12] MEDS: QUETIAPINE FUMARATE 100 MG TABLET PO SCH (21:13)
[2022-09-12] MEDS: INSULIN REGULAR, HUMAN 100 UNIT/ML 3 ML VIAL SQ PRN (21:22)
[2022-09-13] MEDS: CEPHALEXIN MONOHYDRATE 500 MG CAPSULE PO SCH ×4 (06:08→23:15)
[2022-09-13 08:00] VITALS: BP 130/73
[2022-09-13] MEDS: BLOOD SUGAR DIAGNOSTIC 1 EACH STRIP IN SCH ×4 (08:08→21:23)
[2022-09-13] MEDS: POTASSIUM CHLORIDE 10 MEQ TABLET.SA PO SCH (08:08)
[2022-09-13] MEDS: GLUCERNA SHAKE 237 ML CAN PO SCH ×3 (08:08→16:24)
[2022-09-13] MEDS: QUETIAPINE FUMARATE 25 MG TABLET PO SCH ×3 (08:08→16:24)
[2022-09-13] MEDS: DIVALPROEX SODIUM 125 MG CAP.SPRINK PO SCH ×4 (08:08→21:15)
[2022-09-13] MEDS: FUROSEMIDE 20 MG TABLET PO SCH (08:08)
[2022-09-13 16:00] VITALS: BP 113/55
[2022-09-13] MEDS: INSULIN REGULAR, HUMAN 100 UNIT/ML 3 ML VIAL SQ PRN ×2 (17:14→21:24)
[2022-09-13 21:05] VITALS: BP 155/72
[2022-09-13] MEDS: QUETIAPINE FUMARATE 100 MG TABLET PO SCH (21:15)
[2022-09-13 22:00] VITALS: BP 135/73
[2022-09-14] MEDS: CEPHALEXIN MONOHYDRATE 500 MG CAPSULE PO SCH ×4 (05:20→23:26)
[2022-09-14 07:31] LABS: BASOPHILS % (AUTO) 0.5 % (0.0-2.0); EOSINOPHILS % (AUTO) 4.2 % (0.0-6.0); HEMATOCRIT 35 % (33-45); HEMOGLOBIN 11.5 g/dL (11.5-14.8); LYMPHOCYTES % (AUTO) 46.6 % (20.0-44.0); MEAN CORPUSCULAR HGB CONC 33 g/dl (31.0-36.0); MEAN CORPUSCULAR VOLUME 86 fL (82-100); MONOCYTES # (AUTO) 0.5 K/uL (0.1-1.30); MONOCYTES % (AUTO) 12.8 % (2.0-12.0); NEUTROPHILS # (AUTO) 1.5 K/uL (1.8-8.9); NEUTROPHILS % (AUTO) 35.9 % (43.0-81.0); PLATELET COUNT (AUTO) 235 K/uL (150-450); RED BLOOD CELL COUNT(AUTO) 4.03 MIL/uL (4.0-5.2); WHITE BLOOD COUNT (AUTO) 4.3 K/uL (4.3-11.0)
[2022-09-14] MEDS: BLOOD SUGAR DIAGNOSTIC 1 EACH STRIP IN SCH ×4 (07:44→21:29)
[2022-09-14] MEDS: GLUCERNA SHAKE 237 ML CAN PO SCH ×3 (07:44→17:13)
[2022-09-14 08:00] VITALS: BP 125/71
[2022-09-14 08:09] LABS: ALBUMIN 2.8 g/dL (3.4-5.0); BILIRUBIN,TOTAL 0.2 mg/dL (0.2-1.0); CALCIUM, SERUM 8.9 mg/dL (8.5-10.1); CREATININE 0.9 mg/dL (0.6-1.3); POTASSIUM 4.1 mmol/L (3.5-5.1); TOTAL PROTEIN, SERUM 6.7 g/dL (6.4-8.2)
[2022-09-14] MEDS: QUETIAPINE FUMARATE 25 MG TABLET PO SCH ×3 (08:23→16:36)
[2022-09-14] MEDS: POTASSIUM CHLORIDE 10 MEQ TABLET.SA PO SCH (08:23)
[2022-09-14] MEDS: FUROSEMIDE 20 MG TABLET PO SCH (08:23)
[2022-09-14] MEDS: DIVALPROEX SODIUM 125 MG CAP.SPRINK PO SCH ×4 (08:23→21:15)
[2022-09-14 16:00] VITALS: BP 124/84
[2022-09-14] MEDS: QUETIAPINE FUMARATE 100 MG TABLET PO SCH (21:15)
[2022-09-14] MEDS: INSULIN REGULAR, HUMAN 100 UNIT/ML 3 ML VIAL SQ PRN (21:29)
[2022-09-14 21:49] VITALS: BP 132/69
[2022-09-15] MEDS: CEPHALEXIN MONOHYDRATE 500 MG CAPSULE PO SCH ×5 (05:46→23:59)
[2022-09-15] MEDS: BLOOD SUGAR DIAGNOSTIC 1 EACH STRIP IN SCH ×4 (07:56→22:34)
[2022-09-15 08:00] VITALS: BP 118/69
[2022-09-15] MEDS: GLUCERNA SHAKE 237 ML CAN PO SCH ×3 (08:11→17:49)
[2022-09-15] MEDS: FUROSEMIDE 20 MG TABLET PO SCH (08:26)
[2022-09-15] MEDS: POTASSIUM CHLORIDE 10 MEQ TABLET.SA PO SCH (08:26)
[2022-09-15] MEDS: QUETIAPINE FUMARATE 25 MG TABLET PO SCH ×4 (08:26→16:38)
[2022-09-15] MEDS: DIVALPROEX SODIUM 125 MG CAP.SPRINK PO SCH ×5 (08:26→21:54)
[2022-09-15] MEDS: INSULIN REGULAR, HUMAN 100 UNIT/ML 3 ML VIAL SQ PRN ×2 (08:42→22:36)
[2022-09-15 20:43] VITALS: BP 148/78
[2022-09-15] MEDS: QUETIAPINE FUMARATE 100 MG TABLET PO SCH (21:54)
[2022-09-16] MEDS: CEPHALEXIN MONOHYDRATE 500 MG CAPSULE PO SCH ×4 (06:09→17:13)
[2022-09-16] MEDS: BLOOD SUGAR DIAGNOSTIC 1 EACH STRIP IN SCH ×4 (07:30→21:45)
[2022-09-16 08:00] VITALS: BP 133/84
[2022-09-16] MEDS: GLUCERNA SHAKE 237 ML CAN PO SCH ×3 (08:39→17:13)
[2022-09-16] MEDS: POTASSIUM CHLORIDE 10 MEQ TABLET.SA PO SCH (08:59)
[2022-09-16] MEDS: QUETIAPINE FUMARATE 25 MG TABLET PO SCH ×4 (08:59→16:40)
[2022-09-16] MEDS: FUROSEMIDE 20 MG TABLET PO SCH (08:59)
[2022-09-16] MEDS: DIVALPROEX SODIUM 125 MG CAP.SPRINK PO SCH ×5 (09:00→21:26)
[2022-09-16 16:00] VITALS: BP 147/78
[2022-09-16 20:24] VITALS: BP 122/69
[2022-09-16] MEDS: QUETIAPINE FUMARATE 100 MG TABLET PO SCH (21:25)
[2022-09-16] MEDS: INSULIN REGULAR, HUMAN 100 UNIT/ML 3 ML VIAL SQ PRN (21:44)
[2022-09-17] MEDS: CEPHALEXIN MONOHYDRATE 500 MG CAPSULE PO SCH ×4 (01:30→17:00)
[2022-09-17 07:21] LABS: BASOPHILS % (AUTO) 0.6 % (0.0-2.0); EOSINOPHILS % (AUTO) 5.3 % (0.0-6.0); HEMATOCRIT 37 % (33-45); HEMOGLOBIN 12.3 g/dL (11.5-14.8); LYMPHOCYTES # (AUTO) 1.8 K/uL (0.8-4.8); LYMPHOCYTES % (AUTO) 43.2 % (20.0-44.0); MEAN CORPUSCULAR HGB CONC 33 g/dl (31.0-36.0); MEAN CORPUSCULAR VOLUME 87 fL (82-100); MONOCYTES # (AUTO) 0.4 K/uL (0.1-1.30); MONOCYTES % (AUTO) 8.7 % (2.0-12.0); NEUTROPHILS # (AUTO) 1.8 K/uL (1.8-8.9); NEUTROPHILS % (AUTO) 42.2 % (43.0-81.0); PLATELET COUNT (AUTO) 282 K/uL (150-450); RED BLOOD CELL COUNT(AUTO) 4.26 MIL/uL (4.0-5.2); WHITE BLOOD COUNT (AUTO) 4.3 K/uL (4.3-11.0)
[2022-09-17] MEDS: GLUCERNA SHAKE 237 ML CAN PO SCH ×3 (07:46→17:06)
[2022-09-17] MEDS: BLOOD SUGAR DIAGNOSTIC 1 EACH STRIP IN SCH ×4 (07:46→21:51)
[2022-09-17 08:00] VITALS: BP 108/64
[2022-09-17 08:14] LABS: BILIRUBIN,TOTAL 0.3 mg/dL (0.2-1.0); CALCIUM, SERUM 9.1 mg/dL (8.5-10.1); CREATININE 0.9 mg/dL (0.6-1.3); POTASSIUM 4.2 mmol/L (3.5-5.1); TOTAL PROTEIN, SERUM 7.3 g/dL (6.4-8.2)
[2022-09-17] MEDS: DIVALPROEX SODIUM 125 MG CAP.SPRINK PO SCH ×4 (08:57→21:06)
[2022-09-17] MEDS: POTASSIUM CHLORIDE 10 MEQ TABLET.SA PO SCH (08:57)
[2022-09-17] MEDS: QUETIAPINE FUMARATE 25 MG TABLET PO SCH ×3 (08:57→17:00)
[2022-09-17] MEDS: FUROSEMIDE 20 MG TABLET PO SCH (08:57)
[2022-09-17] MEDS: INSULIN REGULAR, HUMAN 100 UNIT/ML 3 ML VIAL SQ PRN ×2 (11:38→17:09)
[2022-09-17 16:05] VITALS: BP 114/78
[2022-09-17 20:32] VITALS: BP 154/98
[2022-09-17] MEDS: QUETIAPINE FUMARATE 100 MG TABLET PO SCH (21:06)
[2022-09-18] MEDS: CEPHALEXIN MONOHYDRATE 500 MG CAPSULE PO SCH ×3 (00:52→12:27)
[2022-09-18 08:00] VITALS: BP 150/88
[2022-09-18] MEDS: GLUCERNA SHAKE 237 ML CAN PO SCH ×2 (08:06→12:27)
[2022-09-18] MEDS: DIVALPROEX SODIUM 125 MG CAP.SPRINK PO SCH ×2 (08:06→12:27)
[2022-09-18] MEDS: QUETIAPINE FUMARATE 25 MG TABLET PO SCH ×2 (08:06→12:27)
[2022-09-18] MEDS: FUROSEMIDE 20 MG TABLET PO SCH (08:06)
[2022-09-18] MEDS: POTASSIUM CHLORIDE 10 MEQ TABLET.SA PO SCH (08:06)
[2022-09-18] MEDS: BLOOD SUGAR DIAGNOSTIC 1 EACH STRIP IN SCH ×2 (08:14→12:00)
== END 2022-09-18 14:40 | DRG 885 ==
LOC: ER 16:54 → GPS 18:55
PROVIDERS: ADMIT Psychiatry & Neurology Psychosomatic Medicine; ATTEND Internal Medicine
DX: F31.9 Bipolar disorder, unspecified (principal); E44.1 Mild protein-calorie malnutrition; N39.0 Urinary tract infection, site not specified; F03.92 Unspecified dementia, unspecified severity, with psychotic disturbance; F03.93 Unspecified dementia, unspecified severity, with mood disturbance; G93.49 Other encephalopathy; F29 Unspecified psychosis not due to a substance or known physiological condition; E88.09 Other disorders of plasma-protein metabolism, not elsewhere classified; Z66 Do not resuscitate; Z79.899 Other long term (current) drug therapy; Z73.6 Limitation of activities due to disability; B96.89 Other specified bacterial agents as the cause of diseases classified elsewhere; I10 Essential (primary) hypertension; R79.89 Other specified abnormal findings of blood chemistry; G40.909 Epilepsy, unspecified, not intractable, without status epilepticus
CPT/HCPCS: 36415; 71045-TC; 80048-TC; 80053-TC; 80076-TC; 80164-TC; 81001; 82962-TC; 84484-TC; 85025-TC; 87081-TC; 87086-TC; 97110-TC; 97116-TC; 97530-TC; C9803; G0480; J0696; J1815; J3490

== ENCOUNTER 2023-04-08 19:06 | Inpatient (IN) | payer MEDICARE, OTHER ==
[~2023-04-08] VITALS: Ht 162.6 cm; Wt 68.0 kg
[~2023-04-08 19:06] MED LIST changes: +INSU100V3 SQ; +MAG30ORA PO; +MAGN400O6 PO; -POTA10CA43 PO; +POTA10TA10 PO; -QUET25TA PO
[2023-04-08] MEDS ORDERED: TDAP [DIPH/PERTUSSIS/TET] 0.5 ML VIAL IM ONE ×2 (19:30→19:46)
[2023-04-08] MEDS ORDERED: ACETAMINOPHEN ES 500 MG TABLET ONE (19:46)
[2023-04-08] MEDS ORDERED: ACETAMINOPHEN ES 500 MG TABLET PO ONE (20:00)
[2023-04-08] MEDS ORDERED: LIDOCAINE HCL/PF 1% 30 ML SDV ONE (20:17)
[2023-04-08] MEDS ORDERED: ONDANSETRON 4 MG TAB.RAPDIS ONE (20:20)
[2023-04-08] MEDS ORDERED: ONDANSETRON 4 MG TAB.RAPDIS SL ONE (20:30)
[2023-04-08 21:59] LABS: BASOPHILS % (AUTO) 0.6 % (0.0-2.0); EOSINOPHILS # (AUTO) 0.2 K/uL (0.0-0.7); EOSINOPHILS % (AUTO) 3.4 % (0.0-6.0); HEMATOCRIT 39 % (33-45); HEMOGLOBIN 12.7 g/dL (11.5-14.8); LYMPHOCYTES # (AUTO) 2.3 K/uL (0.8-4.8); LYMPHOCYTES % (AUTO) 34.6 % (20.0-44.0); MEAN CORPUSCULAR HEMOGLOBIN 29 PG (26.0-33.0); MEAN CORPUSCULAR HGB CONC 33 g/dl (31.0-36.0); MEAN CORPUSCULAR VOLUME 89 fL (82-100); MONOCYTES # (AUTO) 0.5 K/uL (0.1-1.30); MONOCYTES % (AUTO) 6.9 % (2.0-12.0); NEUTROPHILS # (AUTO) 3.7 K/uL (1.8-8.9); NEUTROPHILS % (AUTO) 54.5 % (43.0-81.0); PLATELET COUNT (AUTO) 293 K/uL (150-450); RED CELL DISTRIBUTION WIDTH 14.7 % (11.5-15.0); WHITE BLOOD COUNT (AUTO) 6.8 K/uL (4.3-11.0)
[2023-04-08 22:08] LABS: CALCIUM, SERUM 9.1 mg/dL (8.5-10.1); CREATININE 1.1 mg/dL (0.6-1.3); POTASSIUM 4.2 mmol/L (3.5-5.1)
[2023-04-08 22:13] LABS: ALBUMIN 3.3 g/dL (3.4-5.0); BILIRUBIN,DIRECT 0.1 mg/dL (0.0-0.2); BILIRUBIN,TOTAL 0.4 mg/dL (0.2-1.0); TOTAL PROTEIN, SERUM 7.9 g/dL (6.4-8.2)
[2023-04-08 22:19] LABS: INR 1.01 (0.91-1.10); PARTIAL THROMBOPLASTIN TIME 29.7 SEC (24.3-34.3); PROTHROMBIN TIME 10.7 SECS (9.2-11.1)
[2023-04-08] MEDS ORDERED: TEMAZEPAM 15 MG CAPSULE PO PRN (22:30)
[2023-04-08] MEDS ORDERED: MAGNESIUM HYDROXIDE 30 ML UDC PO PRN (22:30)
[2023-04-08] MEDS ORDERED: ACETAMINOPHEN 325 MG TABLET PO PRN (22:30)
[2023-04-08] MEDS ORDERED: MAG HYDROX/AL HYDROX/SIMETH 30 ML UDC PO PRN (22:30)
[2023-04-08] MEDS ORDERED: Z GUARD REMEDY 4 OZ OINT TP PRN (22:30)
[2023-04-08] MEDS ORDERED: ONDANSETRON HCL/PF 4 MG/2 ML VIAL IVP PRN (22:30)
[2023-04-08 23:30] VITALS: BP 149/69; TEMP 97.8; O2SAT 99
[2023-04-09] MEDS: HYDROCODONE/APAP 5/325MG TABLET PO PRN (02:16)
[2023-04-09 08:00] VITALS: BP 113/58; TEMP 98.2; O2SAT 96
[2023-04-09] MEDS ORDERED: DIVA125C2 PO (08:11)
[2023-04-09] MEDS ORDERED: ACET-868 PO (08:11)
[2023-04-09] MEDS ORDERED: QUET25TA PO (08:11)
[2023-04-09] MEDS ORDERED: POTA10TA PO (08:11)
[2023-04-09] MEDS: PANTOPRAZOLE 40 MG TABLET.DR PO SCH (08:48)
[2023-04-09] MEDS: DIVALPROEX SODIUM 500 MG TABLET.DR PO SCH ×3 (12:25→17:00)
[2023-04-09] MEDS: QUETIAPINE FUMARATE 25 MG TABLET PO SCH ×4 (12:25→21:01)
[2023-04-09 16:00] VITALS: BP 146/80; TEMP 98.1; O2SAT 96
[2023-04-09 19:25] LABS: APPEARANCE,URINE CLEAR (CLEAR); BILIRUBIN,URINE NEGATIVE (NEGATIVE); BLOOD, URINE NEGATIVE Ery/uL (NEGATIVE); COLOR,URINE YELLOW (YELLOW); KETONES,URINE NEGATIVE (NEGATIVE); LEUKOCYTE ESTERASE ,URINE NEGATIVE (NEGATIVE); NITRITE, URINE NEGATIVE (NEGATIVE); PROTEIN,URINE TRACE mg/dl (NEGATIVE); UGLUCOSE NEGATIVE (NEGATIVE)
[2023-04-09 19:44] LABS: ADD URINE CULTURE NO; BACTERIA,URINE None seen /HPF (None Seen); MUCUS,URINE Few /LPF (None Seen); RBC,URINE 0-2 /HPF (0-2); SQUAMOUS EPITHELIAL CELL,UR None Seen /HPF (None Seen); WBC,URINE 0-2 /HPF (0-3)
[2023-04-09 20:00] VITALS: BP 128/72; TEMP 98.8; O2SAT 97
[2023-04-09] MEDS: DIVALPROEX SODIUM 125 MG CAP.SPRINK PO SCH (21:04)
[2023-04-10] MEDS: HYDROCODONE/APAP 5/325MG TABLET PO PRN (00:46)
[2023-04-10 06:52] LABS: BASOPHILS % (AUTO) 0.5 % (0.0-2.0); EOSINOPHILS # (AUTO) 0.3 K/uL (0.0-0.7); EOSINOPHILS % (AUTO) 3.6 % (0.0-6.0); HEMATOCRIT 40 % (33-45); HEMOGLOBIN 13.1 g/dL (11.5-14.8); LYMPHOCYTES # (AUTO) 3.3 K/uL (0.8-4.8); LYMPHOCYTES % (AUTO) 44.7 % (20.0-44.0); MEAN CORPUSCULAR HEMOGLOBIN 29 PG (26.0-33.0); MEAN CORPUSCULAR HGB CONC 33 g/dl (31.0-36.0); MEAN CORPUSCULAR VOLUME 88 fL (82-100); MONOCYTES # (AUTO) 0.6 K/uL (0.1-1.30); MONOCYTES % (AUTO) 7.7 % (2.0-12.0); NEUTROPHILS # (AUTO) 3.2 K/uL (1.8-8.9); NEUTROPHILS % (AUTO) 43.5 % (43.0-81.0); PLATELET COUNT (AUTO) 269 K/uL (150-450); RED BLOOD CELL COUNT(AUTO) 4.49 MIL/uL (4.0-5.2); WHITE BLOOD COUNT (AUTO) 7.4 K/uL (4.3-11.0)
[2023-04-10 07:14] LABS: CALCIUM, SERUM 8.9 mg/dL (8.5-10.1); MAGNESIUM 2.3 mg/dL (1.8-2.4); PHOSPHORUS 3.7 mg/dL (2.5-4.9)
[2023-04-10] MEDS: PANTOPRAZOLE 40 MG TABLET.DR PO SCH (07:52)
[2023-04-10 08:00] VITALS: BP 124/63; TEMP 97.5; O2SAT 96
[2023-04-10] MEDS: DIVALPROEX SODIUM 500 MG TABLET.DR PO SCH ×3 (08:28→16:20)
[2023-04-10] MEDS: QUETIAPINE FUMARATE 25 MG TABLET PO SCH ×4 (08:28→21:52)
[2023-04-10 12:00] VITALS: BP 105/53; TEMP 97.5; O2SAT 97
[2023-04-10 20:00] VITALS: BP 120/66; TEMP 97.8; O2SAT 96
[2023-04-10] MEDS: DIVALPROEX SODIUM 125 MG CAP.SPRINK PO SCH (21:52)
[2023-04-11 06:08] LABS: BASOPHILS % (AUTO) 0.9 % (0.0-2.0); EOSINOPHILS # (AUTO) 0.2 K/uL (0.0-0.7); EOSINOPHILS % (AUTO) 5.1 % (0.0-6.0); HEMATOCRIT 38 % (33-45); HEMOGLOBIN 12.4 g/dL (11.5-14.8); LYMPHOCYTES # (AUTO) 1.8 K/uL (0.8-4.8); LYMPHOCYTES % (AUTO) 39.8 % (20.0-44.0); MEAN CORPUSCULAR HEMOGLOBIN 29 PG (26.0-33.0); MEAN CORPUSCULAR HGB CONC 33 g/dl (31.0-36.0); MEAN CORPUSCULAR VOLUME 89 fL (82-100); MONOCYTES # (AUTO) 0.4 K/uL (0.1-1.30); MONOCYTES % (AUTO) 9.8 % (2.0-12.0); NEUTROPHILS % (AUTO) 44.4 % (43.0-81.0); PLATELET COUNT (AUTO) 269 K/uL (150-450); RED BLOOD CELL COUNT(AUTO) 4.25 MIL/uL (4.0-5.2); WHITE BLOOD COUNT (AUTO) 4.5 K/uL (4.3-11.0)
[2023-04-11 06:35] LABS: CALCIUM, SERUM 8.3 mg/dL (8.5-10.1); CREATININE 0.9 mg/dL (0.6-1.3); MAGNESIUM 2.3 mg/dL (1.8-2.4); PHOSPHORUS 3.4 mg/dL (2.5-4.9); POTASSIUM 4.1 mmol/L (3.5-5.1)
[2023-04-11] MEDS: PANTOPRAZOLE 40 MG TABLET.DR PO SCH (08:12)
[2023-04-11] MEDS: DIVALPROEX SODIUM 500 MG TABLET.DR PO SCH ×3 (08:12→16:29)
[2023-04-11] MEDS: QUETIAPINE FUMARATE 25 MG TABLET PO SCH ×4 (08:12→21:39)
[2023-04-11 20:00] VITALS: BP 141/62; TEMP 98; O2SAT 99
[2023-04-11] MEDS: DIVALPROEX SODIUM 125 MG CAP.SPRINK PO SCH (21:39)
[2023-04-12 04:00] VITALS: BP 141/62; TEMP 98; O2SAT 99
[2023-04-12] MEDS: DIVALPROEX SODIUM 500 MG TABLET.DR PO SCH ×2 (08:30→12:44)
[2023-04-12] MEDS: PANTOPRAZOLE 40 MG TABLET.DR PO SCH (08:30)
[2023-04-12] MEDS: QUETIAPINE FUMARATE 25 MG TABLET PO SCH ×2 (08:30→12:44)
[2023-04-12] MEDS ORDERED: HYDR-3972 PO (12:22)
== END 2023-04-12 15:41 | DRG 551 ==
LOC: ER 19:08 → MED 22:37
PROVIDERS: ADMIT Nurse Practitioner Acute Care; ATTEND Nurse Practitioner Family
DX: S32.19XA Other fracture of sacrum, initial encounter for closed fracture (principal); G93.41 Metabolic encephalopathy; F03.92 Unspecified dementia, unspecified severity, with psychotic disturbance; F05 Delirium due to known physiological condition; M48.56XA Collapsed vertebra, not elsewhere classified, lumbar region, initial encounter for fracture; W01.0XXA Fall on same level from slipping, tripping and stumbling without subsequent striking against object, initial encounter; Y92.129 Unspecified place in nursing home as the place of occurrence of the external cause; G40.909 Epilepsy, unspecified, not intractable, without status epilepticus; F29 Unspecified psychosis not due to a substance or known physiological condition; I50.9 Heart failure, unspecified; I11.0 Hypertensive heart disease with heart failure; E11.9 Type 2 diabetes mellitus without complications; Z79.4 Long term (current) use of insulin; S01.81XA Laceration without foreign body of other part of head, initial encounter; R53.1 Weakness; S09.90XA Unspecified injury of head, initial encounter; F31.9 Bipolar disorder, unspecified; Z79.899 Other long term (current) drug therapy
CPT/HCPCS: 36415; 70450-TC; 71045-TC; 72192-TC; 72220-TC; 73030-TC; 73060-TC; 73080-TC; 80048-TC; 80076-TC; 80164-TC; 81001; 83735-TC; 84100-TC; 85025-TC; 85730-TC; 87081-TC; 90715; 97110-TC; 97116-TC; 97530-TC; 97535-TC; A6403; G0378; J3490; Q0162

== ENCOUNTER 2023-05-15 21:50 | Emergency (ER) | payer MEDICARE, OTHER ==
[~2023-05-15] VITALS: Ht 154.9 cm; Wt 59.0 kg
[~2023-05-15 21:50] MED LIST changes: +ACET-868 PO; -ACET325T53 PO; -BISA10SU11 RC; +DIVA125C2 PO; +HYDR-3972 PO; -MAG30ORA PO; -MAGN400O6 PO; +POTA10TA PO; -POTA10TA10 PO; +QUET25TA PO
[2023-05-15 22:00] VITALS: BP 96/60; TEMP 98.3; O2SAT 97
[2023-05-15] MEDS ORDERED: ACETAMINOPHEN ES 500 MG TABLET ONE (22:21)
[2023-05-15] MEDS ORDERED: ACETAMINOPHEN ES 500 MG TABLET PO ONE (22:30)
== END 2023-05-16 00:34 ==
LOC: ER 21:56
DX: M25.531 Pain in right wrist (principal); F03.90 Unspecified dementia, unspecified severity, without behavioral disturbance, psychotic disturbance, mood disturbance, and anxiety; I11.0 Hypertensive heart disease with heart failure; I50.9 Heart failure, unspecified; E11.9 Type 2 diabetes mellitus without complications; F31.9 Bipolar disorder, unspecified; Z79.4 Long term (current) use of insulin; Z79.899 Other long term (current) drug therapy
CPT/HCPCS: 73090-TC; 73110; 73130-TC

== ENCOUNTER 2024-03-26 15:15 | Inpatient (IN) | payer MEDICARE, OTHER ==
[~2024-03-26] VITALS: Ht 149.9 cm; Wt 58.5 kg
[2024-03-26] MEDS: ONDANSETRON HCL/PF 4 MG/2 ML VIAL IVP ONE (16:00)
[2024-03-26] MEDS: MORPHINE SULFATE INJ 2 MG/ML DISP.SYRIN IV ONE (16:05)
[2024-03-26] MEDS ORDERED: MORPHINE SULFATE INJ 2 MG/ML DISP.SYRIN ONE (16:08)
[2024-03-26] MEDS ORDERED: ONDANSETRON HCL/PF 4 MG/2 ML VIAL ONE (16:08)
[2024-03-26] MEDS ORDERED: HYDR-4209 PO (16:09)
[2024-03-26] MEDS ORDERED: MUPI15CR TP (16:09)
[2024-03-26] MEDS ORDERED: CLOT15CR27 TP (16:09)
[2024-03-26] MEDS ORDERED: NALO4SPR NS (16:09)
[2024-03-26] MEDS ORDERED: GLUC1KIT SQ (16:09)
[2024-03-26] MEDS ORDERED: DIVA125C5 PO ×2 (16:09)
[2024-03-26] MEDS: IV NS 0.9% 1,000 ML BAG IV ONE (16:15)
[2024-03-26 16:32] LABS: BASOPHILS % (AUTO) 0.6 % (0.0-2.0); EOSINOPHILS # (AUTO) 0.2 K/uL (0.0-0.7); EOSINOPHILS % (AUTO) 3.5 % (0.0-6.0); HEMATOCRIT 35 % (33-45); HEMOGLOBIN 11.5 g/dL (11.5-14.8); LYMPHOCYTES # (AUTO) 1.4 K/uL (0.8-4.8); LYMPHOCYTES % (AUTO) 21.5 % (20.0-44.0); MEAN CORPUSCULAR HEMOGLOBIN 29 PG (26.0-33.0); MEAN CORPUSCULAR HGB CONC 33 g/dl (31.0-36.0); MEAN CORPUSCULAR VOLUME 88 fL (82-100); MONOCYTES # (AUTO) 0.7 K/uL (0.1-1.30); MONOCYTES % (AUTO) 10.5 % (2.0-12.0); NEUTROPHILS # (AUTO) 4.1 K/uL (1.8-8.9); NEUTROPHILS % (AUTO) 63.9 % (43.0-81.0); PLATELET COUNT (AUTO) 279 K/uL (150-450); RED BLOOD CELL COUNT(AUTO) 3.95 MIL/uL (4.0-5.2); RED CELL DISTRIBUTION WIDTH 14.3 % (11.5-15.0); WHITE BLOOD COUNT (AUTO) 6.4 K/uL (4.3-11.0)
[2024-03-26 16:41] LABS: CALCIUM, SERUM 8.3 mg/dL (8.5-10.1); CARBON DIOXIDE 24 mmol/L (21-32); CHLORIDE 106 mmol/L (98-107); CREATININE 1.1 mg/dL (0.6-1.3); GLUCOSE 152 mg/dL (74-106); POTASSIUM 4.8 mmol/L (3.5-5.1); SODIUM SERUM 137 mmol/L (136-145); UREA NITROGEN, BLOOD 27 mg/dL (7-18)
[2024-03-26 16:53] LABS: ALANINE AMINOTRANSFERASE 16 U/L (12-78); ALBUMIN 2.8 g/dL (3.4-5.0); ALKALINE PHOSPHATASE 68 U/L (46-116); ASPARTATE AMINOTRANSFERASE 18 U/L (15-37); BILIRUBIN,DIRECT 0.1 mg/dL (0.0-0.2); BILIRUBIN,TOTAL 0.2 mg/dL (0.2-1.0); LIPASE 26 U/L (16-77); TOTAL PROTEIN, SERUM 7.3 g/dL (6.4-8.2)
[2024-03-26] MEDS ORDERED: HALOPERIDOL LACTATE INJ 5 MG/ML VIAL ONE ×2 (17:26→19:35)
[2024-03-26] MEDS: HALOPERIDOL LACTATE INJ 5 MG/ML VIAL IM ONE ×2 (17:30→19:40)
[2024-03-26] MEDS ORDERED: MAG HYDROX/AL HYDROX/SIMETH 30 ML UDC PO PRN (18:30)
[2024-03-26] MEDS ORDERED: ACETAMINOPHEN 325 MG TABLET PO PRN (18:30)
[2024-03-26] MEDS ORDERED: ONDANSETRON HCL/PF 4 MG/2 ML VIAL IVP PRN (18:30)
[2024-03-26] MEDS ORDERED: Z GUARD REMEDY 4 OZ OINT TP PRN (18:30)
[2024-03-26] MEDS ORDERED: MAGNESIUM HYDROXIDE 30 ML UDC PO PRN (18:30)
[2024-03-26] MEDS ORDERED: DEXTROSE 50%-WATER 50 ML DISP.SYRIN IV PRN (19:30)
[2024-03-26 20:35] LABS: APPEARANCE,URINE CLEAR (CLEAR); BILIRUBIN,URINE NEGATIVE (NEGATIVE); BLOOD, URINE NEGATIVE Ery/uL (NEGATIVE); COLOR,URINE YELLOW (YELLOW); KETONES,URINE NEGATIVE (NEGATIVE); LEUKOCYTE ESTERASE ,URINE NEGATIVE (NEGATIVE); NITRITE, URINE NEGATIVE (NEGATIVE); PROTEIN,URINE NEGATIVE (NEGATIVE); UGLUCOSE NEGATIVE (NEGATIVE); UROBILINOGEN,URINE 0.2 EU/dL (0.2)
[2024-03-26] MEDS: QUETIAPINE FUMARATE 25 MG TABLET PO SCH (21:00)
[2024-03-26] MEDS: BLOOD SUGAR DIAGNOSTIC 1 EACH STRIP IN SCH (22:00)
[2024-03-26] MEDS: DIVALPROEX SODIUM 125 MG CAP.SPRINK PO SCH (22:00)
[2024-03-26 22:10] VITALS: BP 120/51; TEMP 97.6; O2SAT 96
[2024-03-26] MEDS: INSULIN REGULAR, HUMAN 100 UNIT/ML 3 ML VIAL SQ PRN (23:25)
[2024-03-26] MEDS: IV NS 0.9% 1,000 ML IV PRN (23:54)
[2024-03-27] MEDS: ACETAMINOPHEN 325 MG TABLET PO PRN (02:20)
[2024-03-27 06:48] LABS: BASOPHILS % (AUTO) 0.5 % (0.0-2.0); EOSINOPHILS # (AUTO) 0.1 K/uL (0.0-0.7); EOSINOPHILS % (AUTO) 1.5 % (0.0-6.0); HEMATOCRIT 34 % (33-45); HEMOGLOBIN 11.2 g/dL (11.5-14.8); LYMPHOCYTES # (AUTO) 0.8 K/uL (0.8-4.8); LYMPHOCYTES % (AUTO) 13.2 % (20.0-44.0); MEAN CORPUSCULAR HEMOGLOBIN 29 PG (26.0-33.0); MEAN CORPUSCULAR HGB CONC 33 g/dl (31.0-36.0); MEAN CORPUSCULAR VOLUME 87 fL (82-100); MONOCYTES # (AUTO) 0.5 K/uL (0.1-1.30); MONOCYTES % (AUTO) 8.3 % (2.0-12.0); NEUTROPHILS # (AUTO) 4.7 K/uL (1.8-8.9); NEUTROPHILS % (AUTO) 76.5 % (43.0-81.0); PLATELET COUNT (AUTO) 277 K/uL (150-450); RED BLOOD CELL COUNT(AUTO) 3.86 MIL/uL (4.0-5.2); RED CELL DISTRIBUTION WIDTH 14.6 % (11.5-15.0); WHITE BLOOD COUNT (AUTO) 6.1 K/uL (4.3-11.0)
[2024-03-27 07:50] LABS: CALCIUM, SERUM 8.4 mg/dL (8.5-10.1); CARBON DIOXIDE 28 mmol/L (21-32); CHLORIDE 106 mmol/L (98-107); CREATININE 0.9 mg/dL (0.6-1.3); GLUCOSE 233 mg/dL (74-106); MAGNESIUM 1.8 mg/dL (1.8-2.4); PHOSPHORUS 2.7 mg/dL (2.5-4.9); POTASSIUM 4.3 mmol/L (3.5-5.1); SODIUM SERUM 140 mmol/L (136-145); UREA NITROGEN, BLOOD 20 mg/dL (7-18)
[2024-03-27 08:00] VITALS: BP 150/105; TEMP 97.8; O2SAT 96
[2024-03-27] MEDS: DIVALPROEX SODIUM 125 MG CAP.SPRINK PO SCH (10:24)
[2024-03-27] MEDS: HYDROCODONE/APAP 5/325MG TABLET PO PRN (12:28)
[2024-03-27] MEDS: LIDOCAINE 5% (PATCH) 1 EA PATCH TP SCH (14:39)
[2024-03-27] MEDS: POLYETHYLENE GLYCOL 3350 17 GM POWD.PACK PO SCH (14:41)
[2024-03-27 16:00] VITALS: BP 142/125; TEMP 97.9; O2SAT 96
[2024-03-27 20:00] VITALS: BP 160/77; TEMP 98.4; O2SAT 96
[2024-03-28 05:00] VITALS: BP 143/71; TEMP 97; TEMP 98.2; O2SAT 97; O2SAT 98
[2024-03-28 08:00] VITALS: BP 155/71; TEMP 97.7; O2SAT 97
[2024-03-28 16:00] VITALS: BP 153/79; TEMP 98; O2SAT 98
[2024-03-28] MEDS: HYDROCORTISONE 1% CREAM 28.35 GM TUBE TP SCH (17:30)
[2024-03-28 20:44] VITALS: BP 170/90; TEMP 97.9; O2SAT 97
[2024-03-28] MEDS: CLONIDINE HCL 0.1 MG TABLET PO PRN (20:51)
[2024-03-28 23:21] VITALS: BP 170/90; TEMP 97.9; O2SAT 97
[2024-03-29 05:14] VITALS: BP 140/90; TEMP 97.9; O2SAT 97
[2024-03-29 08:00] VITALS: BP 136/68; TEMP 98.2; O2SAT 96
[2024-03-29] MEDS ORDERED: LIDO30AD10 TP (09:47)
[2024-03-29] MEDS ORDERED: HYDR28.32 TP (09:47)
[2024-03-29] MEDS ORDERED: POLY17PO29 PO (09:47)
== END 2024-03-29 15:00 | DRG 640 ==
LOC: ER 15:37 → TELE 21:43 → MED 23:01
PROVIDERS: ADMIT Nurse Practitioner Acute Care; ATTEND Nurse Practitioner Acute Care
DX: R62.7 Adult failure to thrive (principal); G93.41 Metabolic encephalopathy; E44.1 Mild protein-calorie malnutrition; M16.0 Bilateral primary osteoarthritis of hip; G40.909 Epilepsy, unspecified, not intractable, without status epilepticus; Z66 Do not resuscitate; F03.90 Unspecified dementia, unspecified severity, without behavioral disturbance, psychotic disturbance, mood disturbance, and anxiety; I11.0 Hypertensive heart disease with heart failure; E11.9 Type 2 diabetes mellitus without complications; I50.9 Heart failure, unspecified; N28.1 Cyst of kidney, acquired; Z51.5 Encounter for palliative care; E78.5 Hyperlipidemia, unspecified; M62.50 Muscle wasting and atrophy, not elsewhere classified, unspecified site; Z79.4 Long term (current) use of insulin; R79.89 Other specified abnormal findings of blood chemistry; Z79.899 Other long term (current) drug therapy; Z87.311 Personal history of (healed) other pathological fracture; E88.09 Other disorders of plasma-protein metabolism, not elsewhere classified; F29 Unspecified psychosis not due to a substance or known physiological condition; K57.30 Diverticulosis of large intestine without perforation or abscess without bleeding
CPT/HCPCS: 36415; 71045-TC; 72170-TC; 80048-TC; 80076-TC; 82962-TC; 83690-TC; 83735-TC; 84100-TC; 85025-TC; 87081-TC; 87086-TC; 97116-TC; 97530-TC; A4223; G0378; J1630; J1815; J2270; J2405; J7030